=== PATIENT | male | born 1980 | race Asian ===

== ENCOUNTER 2016-09-18 01:34 | Emergency (ER) | payer BC, OTHER ==
[~2016-09-18] VITALS: Ht 154.9 cm; Wt 80.0 kg
[2016-09-18 01:40] VITALS: TEMP 97.9
[2016-09-18 02:29] LABS: BASO % 0.4 % (0.0-2.0); EOS # 0.3 (0.0-0.7); EOS % 4.5 % (0-4.0); GRAN # 3.2 (1.4-6.5); GRAN % 45.2 % (42.2-75.2); HEMATOCRIT 44.7 % (42.0-52.0); HEMOGLOBIN 15.4 g/dl (13.5-18.0); LYMPH # 2.8 (1.2-3.4); LYMPH % 40.7 % (20.0-51.0); MEAN CELL VOLUME 84 fl (80.0-100.0); MEAN CORPUSCULAR HEMOGLOBIN 29 pg (27.0-31.0); MEAN CORPUSCULAR HGB CONC 35 g/dl (33.0-37.0); MEAN PLATELET VOLUME 9.9 fl (7.4-10.4); MONO # 0.6 (0.1-0.6); MONO % 8.9 % (1.7-9.3); PLATELET COUNT 238 K/mm3 (130-400); RED BLOOD COUNT 5.34 M/mm3 (4.20-5.60); REDCELL DISTRIBUTION WIDTH-CV 12.6 % (11.5-14.5)
[2016-09-18 02:32] LABS: PH 5 (5-8); SQUAMOUS EPITHELIAL 0-2 /hpf; URINE APPEARANCE Clear; URINE BACTERIA None Seen /hpf; URINE BILIRUBIN Negative (NEGATIVE); URINE BLOOD 3+ (NEGATIVE); URINE COLOR Yellow; URINE GLUCOSE Negative (NEGATIVE); URINE KETONE Negative (NEGATIVE); URINE RBC >50 /hpf; URINE UROBILINOGEN Negative (NEGATIVE); URINE WBC 0-2 /hpf
[2016-09-18 02:38] LABS: ADJUSTED CALCIUM 8.7 mg/dL (8.4-10.2); ALBUMIN 4.3 gm/dL (3.5-5.0); BILIRUBIN,TOTAL 0.7 mg/dL (0.0-1.0); CALCIUM 8.9 mg/dL (8.4-10.2); CREATININE, serum 1.17 mg/dL (0.66-1.25); POTASSIUM 3.6 mmol/L (3.4-5.0); TOTAL PROTEIN 7.6 gm/dL (6.4-8.2)
[2016-09-18] MEDS ORDERED: NORCO 325 MG-51 TAB PO (02:45)
[2016-09-18] MEDS ORDERED: VOLTAREN 75 DR75 MG PO (02:45)
[2016-09-18] MEDS ORDERED: ZOFRAN ODT4 MG SL (02:45)
[2016-09-18] MEDS ORDERED: FLOMAX 0.40.4 MG/CAP PO (02:45)
[2016-09-18 03:40] VITALS: BP 134/91; PULSE 71
== END 2016-09-18 03:40 | disposition home or self-care (01) ==
LOC: COL.ER 01:34
PROVIDERS: Emergency Medicine
DX: N20.2 Calculus of kidney with calculus of ureter (principal)
CPT/HCPCS: J1885; J7030; Q9967

== ENCOUNTER → 2017-02-07 | Outpatient (REF) ==
[~2017-02-07] MED LIST: FLOMAX 0.40.4 MG/CAP PO; NORCO 325 MG-51 TAB PO; VOLTAREN 75 DR75 MG PO; ZOFRAN ODT4 MG SL
== END ==
LOC: WSOH 10:56
DX: Z02.89 Encounter for other administrative examinations (principal)
CPT/HCPCS: G0463